=== PATIENT | female | born 1960 | race Caucasian/White ===

== ENCOUNTER 2021-07-26 16:17 | Emergency (ER) | payer BC ==
[2021-07-26 17:06] LABS: ANION GAP 12.1 mmol/L (5-15); CHLORIDE,CL 106 mmol/L (98-107); SODIUM,NA 143 mmol/L (136-145)
--- NOTE | 2021-07-26 17:32 | EDM.PDOC ---
ED HPI GENERAL MEDICAL PROBLEM - General Chief Complaint: General Stated Complaint: DIZZINESS Time Seen by Provider: 07/26/21 16:45 Source of Information: Reports: Patient History Limitations: Reports: No Limitations - History of Present Illness INITIAL COMMENTS - FREE TEXT/NARRATIVE: Eri is a very pleasant 6-year-old female who presents to the emergency room with complaints of feeling lightheadedness and sensation of feeling of passing out today. She had first episode proximately 850 this morning. She reports she was having a cup of coffee and was driving from [place] when she felt jittery. She felt a little bit lightheadedness and thought her pulse was around 40. She had 2 more episodes that occurred at 10:00 at 11:00 these first 3 episodes all lasted less than a minute she had a final episode happened at approximately 330 this afternoon and felt that it lasted about 15 minutes. She denied any chest pain at the time no shortness of breath. She not experiencing any pain, nausea or vomiting. She denies any diaphoresis. She denies any previous history of cardiac events. She states that she did have a heart murmur as a child and had an echocardiogram about 5 or 6 years ago and reported that this was normal. Family past medical history mother had a history of a atrial fibrillation pacemaker and for a retroperitoneal bleed due to hypercoagulation from her Coumadin at the age of 82 father's past medical history is significant for an DE at 62 and 2 cerebral accidents at 70 and 72 both are . Her past medical history includes 150 pound weight loss about 10 years ago after lap band she reports that she has been able to keep most of her weight off and has get about 70 pounds of the 150 off. She is otherwise a very healthy she just recently had a thorough physical by her primary care in [place]. 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 She has not had a stress test. She is never had any previous episodes of heart irregularities or chest pain. She was encouraged to get this checked out and now presents to the emergency room. Currently she is not experiencing any episodes of feeling lightheaded, no dizziness, nausea or feeling of passing out. Her heart rate is currently 56 she is 100% O2 saturation on room air respiratory 18 blood pressures are 138/78. Onset: Today Onset Date: 07/26/21 Duration: Hour(s):, Recurring Location: Reports: Generalized Severity: Mild Improves with: Reports: None Worsens with: Reports: None Associated Symptoms: Denies: Confusion, Chest Pain, Cough, Diaphoresis, Fever/Chills, Headaches, Loss of Appetite, Nausea/Vomiting, Seizure, Shortness of Breath, Syncope, Weakness - Related Data Allergies Allergy/AdvReac Type Severity Reaction Status Date / Time No Known Allergies Allergy Verified 07/26/21 16:31 Home Meds: Home Meds Calcium Carbonate/Vitamin D3 [Calcium 600-Vit D3 500 Softgel] 1 tab PO DAILY 07/26/21 [History] Denosumab [Prolia] 60 mg SUBCUT Q6M 07/26/21 [History] Multivitamin 1 each PO DAILY 07/26/21 [History] traZODone HCl [Trazodone HCl] 50 mg PO BEDTIME PRN 07/26/21 [History] Social & Family History - Tobacco Use Tobacco Use Status *Q: Never Tobacco User - Caffeine Use Caffeine Use: Reports: Coffee, Tea - Recreational Drug Use Recreational Drug Use: No ED ROS GENERAL - Review of Systems Review Of Systems: See Below Constitutional: Reports: No Symptoms HEENT: Reports: No Symptoms Respiratory: Reports: No Symptoms Cardiovascular: Reports: Lightheadedness. Denies: Chest Pain, Blood Pressure Problem, Claudication, Dyspnea on Exertion, Edema, Orthopnea, Palpitations Endocrine: Reports: No Symptoms GI/Abdominal: Reports: No Symptoms : Reports: No Symptoms Musculoskeletal: Reports: No Symptoms Skin: Reports: No Symptoms Neurological: Reports: Dizziness Psychiatric: Reports: No Symptoms Hematologic/Lymphatic: Reports: No Symptoms Immunologic: Reports: No Symptoms ED EXAM, GENERAL - Physical Exam Exam: See Below Exam Limited By: No Limitations General Appearance: Alert, WD/WN, No Apparent Distress, Obese Eye Exam: Bilateral Eye: EOMI Ears: Hearing Grossly Normal Nose: Normal Inspection Throat/Mouth: Normal Inspection, Normal Lips, Normal Oropharynx, Normal Voice, No Airway Compromise Head: Atraumatic, Normocephalic Neck: Normal Inspection, Supple, Non-Tender, Full Range of Motion. No: Carotid Bruit, Lymphadenopathy (L), Lymphadenopathy (R), Thyromegaly Respiratory/Chest: No Respiratory Distress, Lungs Clear, Normal Breath Sounds, No Accessory Muscle Use, Chest Non-Tender Cardiovascular: Normal Peripheral Pulses, Regular Rate, Rhythm Peripheral Pulses: 2+: Carotid (L), Carotid (R), Radial (L), Radial (R) GI/Abdominal: Soft Back Exam: Normal Inspection Extremities: Normal Inspection, Normal Range of Motion, No Pedal Edema Neurological: Alert, Oriented, No Motor/Sensory Deficits Psychiatric: Normal Affect, Normal Mood Skin Exam: Warm, Dry, Intact, Normal Color, No Rash #1 Interpretation EKG Date: 07/26/21 Time: 16:45 Rhythm: Other (Sinus bradycardia with occasional premature ventricular complexes.) Rate (Beats/Min): 55 [place]: Normal P-Wave: Present QRS: Normal ST-T: Normal QT: Normal Comparison: NA - No Prior EKG EKG Interpretation Comments: Sinus bradycardia with occasional premature ventricular complexes otherwise normal ECG Course - Vital Signs Last Recorded V/S: Last Vital Signs Temp 97.2 F 07/26/21 16:20 Pulse 60 07/26/21 16:20 Resp 16 07/26/21 16:20 BP 153/89 H 07/26/21 16:20 Pulse Ox 99 07/26/21 16:20 - Orders/Labs/Meds Orders: Active Orders 24 hr Category Date Time Status TROPONIN I HIGH SENSITIVITY [CHEM] Stat Lab 07/26/21 16:39 Received EKG 12 Lead [EK] Stat Ther 07/26/21 16:31 Ordered Labs: Laboratory Tests 07/26/21 07/26/21 Range/Units 16:39 16:39 WBC 7.75 (5.00-10.00) 10^3/uL RBC 4.74 (3.80-5.50) 10^6/uL Hgb 13.6 (12.0-16.0) g/dL Hct 43.2 (37.0-47.0) % MCV 91.1 (82.0-92.0) fL MCH 28.7 (27.0-31.0) pg MCHC 31.5 L (32.0-36.0) g/dL RDW 12.9 (11.5-14.5) % Plt Count 270 (150-400) 10^3/uL MPV 9.0 (7.4-10.4) fL Immature Gran % (Auto) 0.1 (0.0-5.0) % Neut % (Auto) 49.5 L (50.0-70.0) % Lymph % (Auto) 40.1 H (20.0-40.0) % [place] % (Auto) 8.5 H (2.0-8.0) % Eos % (Auto) 1.4 (1.0-3.0) % Baso % (Auto) 0.4 (0.0-1.0) % Neut # (Auto) 3.83 (2.50-7.00) 10^3/uL Lymph # (Auto) 3.11 (1.00-4.00) 10^3/uL [place] # (Auto) 0.66 (0.10-0.80) 10^3/uL Eos # (Auto) 0.11 (0.10-0.30) 10^3/uL Baso # (Auto) 0.03 (0.00-0.10) 10^3/uL Immature Gran # (Auto) 0.01 (0.00-0.50) 10^3/uL Sodium 143 (136-145) mmol/L Potassium 3.7 (3.5-5.1) mmol/L Chloride 106 (98-107) mmol/L Carbon Dioxide 28.6 (21.0-32.0) mmol/L Anion Gap 12.1 (5-15) mmol/L BUN 16 (7-18) mg/dL Creatinine 0.77 (0.51-1.17) mg/dL Est Cr Clr Drug Dosing 78.38 mL/min Estimated GFR (MDRD) > 60 mL/min Glucose 101 (70-140) mg/dL Calcium 8.8 (8.7-10.3) mg/dL Total Bilirubin 0.3 (0.2-1.0) mg/dL AST 20 (15-37) U/L ALT 31 (14-63) U/L Alkaline Phosphatase 42 L (46-116) U/L Total Protein 7.3 (6.4-8.2) g/dL Albumin 3.79 (3.40-5.00) g/dL - Re-Assessments/Exams Free Text/Narrative Re-Assessment/Exam: 07/26/21 17:46 And is feeling well at this time her heart rate is maintained in the 60s. She is not experience any more lightheadedness or episodes of feeling like she is going to have a syncopal episode. Blood pressures and vital signs have maintained. She was resting comfortably in the bed and I did notice that her O2 saturations did tend to drop down slightly when she fell asleep. We have discussed possibly getting a sleep study test for sleep apnea. She stated to me she would like to follow-up with her primary care for this. If she has any recurrence of symptoms near syncopal episodes or feeling a lightheadedness she may benefit from a Holter monitor. Departure - Departure Time of Disposition: 17:47 Disposition: Home, Self-Care 01 Condition: Good Clinical Impression: Lightheadedness, Bradycardia by electrocardiogram - Discharge Information Referrals: Amber Yeh MD [Primary Care Provider] - Sepsis Event Note (ED) - Evaluation Sepsis Screening Result: No Definite Risk - Focused Exam Vital Signs: Vital Signs Temp Pulse Resp BP Pulse Ox 07/26/21 16:20 97.2 F 60 16 153/89 H 99 - My Orders Last 24 Hours: My Active Orders 07/26/21 16:31 EKG 12 Lead [EK] Stat 07/26/21 16:39 TROPONIN I HIGH SENSITIVITY [CHEM] Stat - Assessment/Plan Last 24 Hours: My Active Orders 07/26/21 16:31 EKG 12 Lead [EK] Stat 07/26/21 16:39 TROPONIN I HIGH SENSITIVITY [CHEM] Stat Assessment:: Lightheadedness, resolved Mild bradycardia on EKG Plan: 1. Patient will be discharged home 2. Encouraged patient to not exert herself over the weekend. 3. If she has any further episodes of lightheadedness or feeling of passing out would recommend further cardiac work-up including possible Holter monitor. 4. Patient when she was resting on the bed I did notice that her O2 saturations did go down slightly. I mentioned this to her. She denies any history of sleep apnea. She may benefit from a sleep study test. She will follow up with her primary care for this.. 5. If she has any current symptoms over the weekend or experiences a new onset of chest pain I recommend returning to the emergency room for further work-up and evaluation. I did discuss with the patient that her lab work troponin were normal and EKG looks unremarkable other than mild bradycardia and occasional PVCs.
== END 2021-07-26 18:05 | disposition home or self-care (01) ==
LOC: KA.ED 16:17
DX: R42 Dizziness and giddiness (principal); R00.1 Bradycardia, unspecified; R94.31 Abnormal electrocardiogram [ECG] [EKG]
CPT/HCPCS: 36415; 80053; 84484; 85025; 93005; 93010; 99284; 99284-25